=== PATIENT | female | born 1975 | race Caucasian/White ===

== ENCOUNTER 2019-06-09 15:42 | Emergency (ER) | payer MEDICAID ==
[~2019-06-09] VITALS: Ht 154.9 cm; Wt 80.3 kg
[2019-06-09 15:53] VITALS: Ht 154.9 cm; Wt 80.3 kg
[2019-06-09 19:38] VITALS: BP 131/62
== END 2019-06-09 19:38 | disposition home or self-care (01) ==
LOC: ED 15:42
DX: M25.512 Pain in left shoulder (principal); I10 Essential (primary) hypertension
CPT/HCPCS: J7512

== ENCOUNTER 2019-11-18 15:32 | Emergency (ER) | payer MEDICAID ==
[2019-11-18 17:55] LABS: CALCIUM 9.2 mg/dL (8.5-10.1); CHLORIDE SERUM 103 mmol/L (98-107); CREATININE SERUM 0.8 mg/dL (0.6-1.0); GFR1 > 60 mL/min; GLUCOSE SERUM 103 mg/dL (74-106); POTASSIUM SERUM 3.8 mmol/L (3.5-5.1); SODIUM SERUM 140 mmol/L (136-145)
[2019-11-18 18:03] LABS: BASOPHIL % 0.4 % (0-2); PLATELET COUNT 278 x10^3mcL (130-400)
[2019-11-18 18:11] LABS: ALBUMIN 3.7 g/dL (3.4-5.0); ALKALINE PHOSPHATASE 66 U/L (46-116); ALT/SGPT 26 U/L (14-59); AST/SGOT 15 U/L (15-37); LIPASE 136 IU/L (73-393)
[2019-11-18 19:04] VITALS: BP 127/63
== END 2019-11-18 19:04 | disposition home or self-care (01) ==
LOC: ED 15:32
PROVIDERS: Emergency Medicine
DX: K29.70 Gastritis, unspecified, without bleeding (principal); K57.30 Diverticulosis of large intestine without perforation or abscess without bleeding; I10 Essential (primary) hypertension
CPT/HCPCS: J2270; J2405

== ENCOUNTER 2020-11-04 11:50 | Emergency (ER) | payer MEDICAID ==
[~2020-11-04] VITALS: Ht 154.9 cm; Wt 75.7 kg
[2020-11-04 12:02] VITALS: Ht 154.9 cm; Wt 75.7 kg
[2020-11-04 14:56] VITALS: BP 124/75
== END 2020-11-04 14:56 | disposition home or self-care (01) ==
LOC: ED 11:50
DX: S39.012A Strain of muscle, fascia and tendon of lower back, initial encounter (principal); I10 Essential (primary) hypertension; E78.00 Pure hypercholesterolemia, unspecified; X58.XXXA Exposure to other specified factors, initial encounter; Y93.89 Activity, other specified; Y92.89 Other specified places as the place of occurrence of the external cause; Y99.8 Other external cause status
CPT/HCPCS: J1885